=== PATIENT | male | born 1965 | race Caucasian/White ===

== ENCOUNTER 2016-09-10 06:40 | Emergency (ER) | payer OTHER ==
[~2016-09-10] VITALS: Ht 182.9 cm; Wt 81.6 kg
[~2016-09-10 06:40] MED LIST: PRON INH
--- NOTE | 2016-09-10 06:43 | NUR ---
Dr. Mcgill evaluating patient at bedside.
--- NOTE | 2016-09-10 06:43 | NUR ---
PT BIJAL ALS. TAKEN TO BED 3
--- NOTE | 2016-09-10 06:44 | NUR ---
Respiratory Therapist at bedside for respiratory intervention.
[2016-09-10 06:49] VITALS: BP 135/108
[2016-09-10] MEDS ORDERED: IPRATROPIUM 0.02% 0.5 MG/2.5 ML NEBU INH ONE ×4 (06:50→09:55)
[2016-09-10] MEDS ORDERED: ALBUTEROL 0.083% 2.5 MG/3 ML NEBU INH ONE ×4 (06:50→09:55)
[2016-09-10] MEDS ORDERED: methylPREDNISolone SS 125 MG/2 ML VIAL IVP ONE (06:50)
[2016-09-10] MEDS ORDERED: MAG SULF 2000 MG/WATER PREMIX 50 ML IV ONE (06:50)
--- NOTE | 2016-09-10 06:50 | NUR ---
50 Y/O M BIBA C/O SOB SINCE YESTERDAY, HE WAS GIVEN BREATHING TREATMENT ENROUTE. WHEEZES ASCULTATED BILATERAL, RETRACTIONS, LABORED BREATHING. ER MD AND RT AT BEDSIDE DOING BREATHING TX. PT O MONITOR.
--- NOTE | 2016-09-10 07:01 | NUR ---
Pt report given to ESTELITA JEAN. Transfer of care at this time.
--- NOTE | 2016-09-10 07:02 | NUR ---
RECEIVED REPORT FROM ESTELITA GRAVES. PT'S RECEIVING BREATHING TREAMENT.WILL CONTINUE TO MONITOR.
--- NOTE | 2016-09-10 07:04 | NUR ---
X-Ray at bedside.
[2016-09-10 07:10] VITALS: BP 144/87
--- NOTE | 2016-09-10 07:10 | NUR ---
pt placed on vision bipap for respiratory distress settings 12\6 rr20 fio2 60% pt still on breathing tx on bipap b\s are wheezing bilaterally, order given by Dr. Kidd
--- NOTE | 2016-09-10 07:13 | NUR ---
Note eldon in EDM - 09/10/16 at 0720 by MED1 PT ON BIPAP 03/25,RATE 20,60%.Patient appears to be resting comfortably in bed. WILL CONTINUE TO MONITOR.
--- NOTE | 2016-09-10 07:13 | NUR ---
Valentina colón in EDM - 09/10/16 at 0742 by MED1 PT ON BIPAP 03/25,RATE 20,FiO2 60 %.Patient appears to be resting comfortably in bed. WILL CONTINUE TO MONITOR.
--- NOTE | 2016-09-10 07:13 | NUR ---
PT ON BIPAP 03/25,RR 20,FiO2 60 %.Patient appears to be resting comfortably in bed. WILL CONTINUE TO MONITOR.
--- NOTE | 2016-09-10 07:19 | NUR ---
PT ON BIPAP 03/25,RR 20,FiO2 40 %.Patient appears to be resting comfortably in bed. WILL CONTINUE TO MONITOR.
--- NOTE | 2016-09-10 07:19 | NUR ---
Valentina colón in EDM - 09/10/16 at 0743 by MED1 PT ON BIPAP 03/25,RATE 20,FiO2 40 %.Patient appears to be resting comfortably in bed. WILL CONTINUE TO MONITOR.
--- NOTE | 2016-09-10 07:41 | NUR ---
pt receiving breathing tx and computer froze pt had twenty minute tx
--- NOTE | 2016-09-10 07:44 | NUR ---
Secondary breathing treatment administered by respiratory therapist at bedside.
[2016-09-10 07:45] LABS: BASOPHILS # (AUTO) 0.4 K/uL (0.00-0.22); BASOPHILS % (AUTO) 3.6 % (0.0-2.0); EOSINOPHILS # (AUTO) 1.2 K/uL (0-0.4); EOSINOPHILS % (AUTO) 10.8 % (0.0-4.0); HEMATOCRIT 46.3 % (36-52); HEMOGLOBIN 15.2 g/dL (12.0-18.0); LYMPHOCYTES # (AUTO) 3.4 K/uL (2.0-11.5); LYMPHOCYTES % (AUTO) 30.8 % (20.5-51.1); MEAN CORPUSCULAR HEMOGLOBIN 30 pg (27-31); MEAN CORPUSCULAR HGB CONC 33 g/dL (33-37); MEAN CORPUSCULAR VOLUME 93 fL (80-94); MONOCYTES # (AUTO) 0.6 K/uL (0.8-1.0); MONOCYTES % (AUTO) 5.9 % (1.7-9.3); NEUTROPHILS # (AUTO) 5.4 K/uL (1.8-7.7); NEUTROPHILS % (AUTO) 48.9 % (42.2-75.2); PLATELET COUNT (AUTO) 266 K/uL (140-450); RED CELL DISTRIBUTION WIDTH 13.8 % (11.6-13.7)
[2016-09-10 08:00] LABS: ANION GAP 10.8 (8-16); CARBON DIOXIDE 30.1 mmol/L (21-32); POTASSIUM 3.9 mmol/L (3.5-5.1)
[2016-09-10 08:01] LABS: CREATININE 0.8 mg/dL (0.6-1.3)
--- NOTE | 2016-09-10 08:11 | NUR ---
ER MD DR RIDLEY REEVALUATING PT AT BEDSIDE. PT'S LUNGS;WEEZING .MD AWARE.3RD BREATHING TREATMENT ORDERED.
--- NOTE | 2016-09-10 08:11 | NUR ---
Valentina colón in EDM - 09/10/16 at 0817 by MED1 OBED RIDLEY REEVALUATING PT AT BEDSIDE. PT'S LUNGS;PATSY .MD OSORIO
--- NOTE | 2016-09-10 08:11 | NUR ---
Note kamillaone in EDM - 09/10/16 at 0834 by MED1 ER MD DR RIDLEY REEVALUATING PT AT BEDSIDE. PT'S LUNGS;WEEZING . 3RD BREATHING TREATMENT ORDERED. AWARE.
--- NOTE | 2016-09-10 08:11 | NUR ---
ER MD DR RIDLEY REEVALUATING PT AT BEDSIDE. PT'S LUNGS;WEEZING . 3RD BREATHING TREATMENT ORDERED. AWARE.
--- NOTE | 2016-09-10 08:34 | NUR ---
Tertiary breathing treatment administered by respiratory therapist at bedside.
--- NOTE | 2016-09-10 08:36 | NUR ---
pt off bipap as per dr. arriaza
--- NOTE | 2016-09-10 08:37 | NUR ---
Valentina colón in [facility] - 09/10/16 at 0838 by MED1 breathing treatment administered by respiratory therapist at bedside.
--- NOTE | 2016-09-10 09:00 | NUR ---
finished 3rd breathing treatment. PULSE OX 91 % ;ON O2 NASAL CANULAR 2 LPM .
--- NOTE | 2016-09-10 09:00 | NUR ---
called to er 3 bedside pt desat to 91% and placed pt on 2lnc and notified
--- NOTE | 2016-09-10 09:40 | NUR ---
AFTER PT HAD BREAKFAST,Patient appears to be resting comfortably in bed.ON O2 NC 2 LPM; LUNGS ;STILL HAS WEEZING . RR 24 ,PULSE OX 93%.WILL CONTINUE TO MONITOR.
--- NOTE | 2016-09-10 10:05 | NUR ---
4TH breathing treatment administered by respiratory therapist at bedside.
[2016-09-10 11:13] VITALS: BP 123/86
--- NOTE | 2016-09-10 11:14 | NUR ---
Patient discharged with v/s stable. Written and verbal after care instructions given and explained. Patient alert, oriented and verbalized understanding of instructions. Ambulatory with steady gait. All questions addressed prior to discharge. ID band removed. Patient advised to follow up with PMD. Rx of PREDNISONE AND ALBUTEROL INHALER given. Patient educated on indication of medication including possible reaction and side effects. Opportunity to ask questions provided and answered.
== END 2016-09-10 11:10 | disposition home or self-care (01) ==
LOC: MED 06:40
DX: J45.901 Unspecified asthma with (acute) exacerbation (principal); Z87.891 Personal history of nicotine dependence
CPT/HCPCS: 36415; 71010; 80048; 84484; 85025; 93005; 94640; 96365; 96366; 96375; 99285; J2930; J3475; J7613; J7644; Q0092

== ENCOUNTER 2019-12-07 21:21 | Emergency (ER) | payer SELFPAY ==
[~2019-12-07] VITALS: Ht 175.3 cm; Wt 65.8 kg
--- NOTE | 2019-12-07 21:25 | NUR ---
biba to bed 4
[2019-12-07 21:32] VITALS: BP 136/83
--- NOTE | 2019-12-07 21:33 | NUR ---
DR. AREVALO AT BEDSIDE EVALUATING PT.
[2019-12-07 21:34] VITALS: BP 136/83
--- NOTE | 2019-12-07 21:39 | NUR ---
54 Y/O M BIBA C/O BACK PAIN X 1 DAY. PT DESCRIBES PAIN TO BE 9/10 FROM THE NECK TO THE WHOLE BACK. PT STATES THAT HE WAS WORKING IN HIS YARD YESTERDAY AND FELT THAT SOMETHING HIT HIM IN THE BACK. PER PT, PAIN WORST NOW SINCE YESTERDAY. NO DEFORMITIES NOTED. AIRWAY INTACT, RR EVEN AND UNLABORED. BED LOCKED AND IN LOWEST POSITION, SIDE RAIL UP X1. WILL CONTINUE TO MONITOR. MHX: ASTHMA NKA
[2019-12-07] MEDS: KETOROLAC 30 MG/ML VIAL IM ONE (21:45)
--- NOTE | 2019-12-07 21:52 | NUR ---
PT TAKEN TO XRAY VIA DAVID.
[2019-12-07] MEDS: CYCLOBENZAPRINE 10 MG TAB PO ONE (23:53)
--- NOTE | 2019-12-08 00:32 | NUR ---
Patient discharged with v/s stable. Written and verbal after care instructions given and explained. Patient alert, oriented and verbalized understanding of instructions. Ambulatory with steady gait. All questions addressed prior to discharge. ID band removed. Patient advised to follow up with PMD. Rx of flexeril and ibuprofen given. Patient educated on indication of medication including possible reaction and side effects. Opportunity to ask questions provided and answered.
== END 2019-12-08 00:32 | disposition home or self-care (01) ==
LOC: MED 21:21
DX: M54.2 Cervicalgia (principal); M54.6 Pain in thoracic spine; M54.5 Low back pain; J45.909 Unspecified asthma, uncomplicated; Z79.899 Other long term (current) drug therapy
CPT/HCPCS: 72040; 72072; 72100; 96372; 99284; J1885

== ENCOUNTER 2020-10-04 13:49 | Emergency (ER) | payer OTHER ==
[~2020-10-04] VITALS: Ht 182.9 cm; Wt 77.1 kg
--- NOTE | 2020-10-04 13:49 | NUR ---
Patient RAINE SANTANA for pre-booking medical screening exam, transferred to chair Justina CAPONE evaluaing the patient.
[2020-10-04 13:50] VITALS: BP 142/104
[2020-10-04 14:32] VITALS: BP 142/104
--- NOTE | 2020-10-04 14:32 | NUR ---
Patient discharged with v/s stable. Written and verbal after care instructions given and explained. Patient verbalized understanding. Police with in custody. All questions addressed prior to discharge. Advised to follow up with PMD.
--- NOTE | 2020-10-04 14:41 | NUR ---
RAINE Owen FOR PREBOOK FOR MEDICAL CLRERANCE. PATIENT STATED HE HAD HX OF STROKE /TROBLE SPEAKING IN DEC 2019. DENIES PAIN. VSS.
== END 2020-10-04 14:32 ==
LOC: MED 13:49
DX: J45.909 Unspecified asthma, uncomplicated (principal); Z02.89 Encounter for other administrative examinations; Z00.00 Encounter for general adult medical examination without abnormal findings; Z79.899 Other long term (current) drug therapy
CPT/HCPCS: 99283

== ENCOUNTER 2020-11-12 22:26 | Emergency (ER) | payer OTHER ==
[~2020-11-12] VITALS: Ht 185.4 cm; Wt 81.6 kg
[2020-11-12 22:26] VITALS: BP 144/96
--- NOTE | 2020-11-12 22:26 | NUR ---
BIBA WITH C/O DIFFICULTY BREATHING, ASTHMA. R.T. IN PROGRESS. INSPIRATORY AND EXPIRATORY WHEEZES NOTED A&P. SKIN IS WARM AND DRY. O2 SAT ON TX = 100% PMH : STROKE WITH DYSPHAGIA, ASTHMA UNKNOWN ALLERGIES
[2020-11-12] MEDS ORDERED: ALBUTEROL SULFATE/IPRATROPIU 3 ML SOL IH ONE (22:50)
[2020-11-12] MEDS ORDERED: methylPREDNISolone SS 125 MG in WATER STERILE 2 ML IV ONE (22:50)
[2020-11-12 23:28] LABS: ANION GAP 9.3 (8-16); CARBON DIOXIDE 33.5 mmol/L (21-32); POTASSIUM 3.8 mmol/L (3.5-5.1)
[2020-11-12] MEDS ORDERED: methylPREDNISolone SS 125 MG/2 ML VIAL ONE (23:52)
--- NOTE | 2020-11-13 | NUR ---
RESTING COMFORTABLY. LUNGS REMAIN WITH INSPIRATORY AND EXPIRATORY WHEEZES.
[2020-11-13 00:53] LABS: BASOPHILS % (AUTO) 0.6 % (0.0-2.0); EOSINOPHILS # (AUTO) 0.6 K/uL (0-0.4); EOSINOPHILS % (AUTO) 11.3 % (0.0-4.0); HEMATOCRIT 43.5 % (36-52); HEMOGLOBIN 14.5 g/dL (12.0-18.0); LYMPHOCYTES # (AUTO) 2.4 K/uL (2.0-11.5); LYMPHOCYTES % (AUTO) 41.7 % (20.5-51.1); MEAN CORPUSCULAR HEMOGLOBIN 34 pg (27-31); MEAN CORPUSCULAR HGB CONC 33 g/dL (33-37); MEAN CORPUSCULAR VOLUME 100.5 fL (80-94); MONOCYTES # (AUTO) 0.5 K/uL (0.8-1.0); MONOCYTES % (AUTO) 8.7 % (1.7-9.3); NEUTROPHILS # (AUTO) 2.2 K/uL (1.8-7.7); NEUTROPHILS % (AUTO) 37.7 % (42.2-75.2); PLATELET COUNT (AUTO) 218 K/uL (140-450); RED BLOOD CELL COUNT(AUTO) 4.33 MIL/uL (4.20-6.10); RED CELL DISTRIBUTION WIDTH 13.2 % (11.6-13.7); WHITE BLOOD COUNT (AUTO) 5.7 K/uL (4.8-10.8)
--- NOTE | 2020-11-13 01:56 | NUR ---
PT TO BE DISCHARGED. CALL TO FAMILY, NO ANSWER
--- NOTE | 2020-11-13 02:11 | NUR ---
CONTINUES TO REST WITH EYES CLOSED. RESPIRATIONS ARE REGULAR AND UNLABORED. LUNG SOUNDS ARE NOW CLEAR, O2 SAT = 97%
[2020-11-13] MEDS ORDERED: PRED20TA5 PO (02:23)
[2020-11-13] MEDS ORDERED: ALBU0.0912 INH (02:24)
--- NOTE | 2020-11-13 02:53 | NUR ---
ADDITIONAL CALL PLACED TO FAMILY REGARDING DISCHARGE., NO ANSWER
--- NOTE | 2020-11-13 05:45 | NUR ---
CALL PLACED TO FAMILY, NO ANSWER
--- NOTE | 2020-11-13 06:35 | NUR ---
PTS SISTER CALLED. NOTIFIED OF DISCHARGE, SISTER WILL BE HERE IN 15 MINUTES TO PARCEL POST WEIGHER PT
[2020-11-13 07:13] VITALS: BP 124/67
--- NOTE | 2020-11-13 07:13 | NUR ---
Patient discharged with v/s stable. Written and verbal after care instructions given and explained. Patient alert, oriented and verbalized understanding of instructions. Ambulatory with steady gait. All questions addressed prior to discharge. ID band removed. Patient advised to follow up with PMD. Rx of PROVENTIL & PREDNISONE given. Patient educated on indication of medication including possible reaction and side effects. Opportunity to ask questions provided and answered.
== END 2020-11-13 07:13 | disposition home or self-care (01) ==
LOC: MED 22:26
DX: J45.901 Unspecified asthma with (acute) exacerbation (principal); I63.9 Cerebral infarction, unspecified; Z79.899 Other long term (current) drug therapy
CPT/HCPCS: 36415; 71045; 80048; 83880; 84484; 85025; 93005; 94640; 96374; 99285; J2930

== ENCOUNTER 2022-08-07 21:32 | Emergency (ER) | payer OTHER ==
[~2022-08-07] VITALS: Ht 177.8 cm; Wt 63.5 kg
[~2022-08-07 21:32] MED LIST changes: +ALBU0.0912 INH; +PRED20TA5 PO
[2022-08-07 21:38] VITALS: BP 154/96
--- NOTE | 2022-08-07 21:38 | NUR ---
PT BIJAL BLS. TAKEN TO BED 7
--- NOTE | 2022-08-07 21:49 | NUR ---
[place] [employer] AT BEDSIDE
--- NOTE | 2022-08-07 21:59 | NUR ---
Note kamillaveronika in EDM - 08/07/22 at 2159 by MNURPM 23YR OLD FEMALE BIB SELF C/O RLQ ABD PAIN X TODAY. SHARP 10/27 PAIN. NON RADATING. PT DENIES CP OR SOB . STATES PAIN STARTED TODAY. DENIES V/D. PT IS A&OX4 . NKDA NO MED HX
--- NOTE | 2022-08-07 22:06 | NUR ---
56YR OLD MALE BIB EMS C/O BEHAVORIAL PT WAS HITTING HEAD ON WALL AT FAMILY HOUSE. LACERATION TO FOREHEAD. BLEEDING CONTROLLED. PT IS A&OX4. DENIES PAIN CP OR SOB. PT HX OF SUBSTANCE ABUSE AND ETOH. PT ATTEMPTS TO DRINKING TODAY. 5150 HOLD PER [place] [employer]. PT IS REFUSING TO GET INTO GOWN AND BAG BELONGINGS. ALL ITEMS FROM ROOM REMOVED FOR PT SAFTEY. NKDA UNKNOWN
--- NOTE | 2022-08-07 22:25 | NUR ---
Dr. Fowler examining patient.
--- NOTE | 2022-08-07 22:26 | NUR ---
PT BECAME AGITATED DURING ASSESSMENT BEGAN YELLING "WHAT WHAT" WHILE GETTING OUT OF BED AND ATTMEPT TO APPROACH MD. PT REDIRECTED, SITTING QUITELY IN BED.
[2022-08-07] MEDS ORDERED: LORazepam 2 MG/ML VIAL IM ONE (22:30)
[2022-08-07] MEDS ORDERED: diphenhydrAMINE 50 MG/ML VIAL IM ONE (22:30)
[2022-08-07] MEDS ORDERED: HALOPERIDOL IM 5 MG/ML VIAL IM ONE (22:30)
[2022-08-07 22:42] LABS: BASOPHILS % (AUTO) 0.6 % (0.0-2.0); EOSINOPHILS % (AUTO) 0.4 % (0.0-4.0); HEMATOCRIT 42.9 % (36-52); HEMOGLOBIN 14.5 g/dL (12.0-18.0); LYMPHOCYTES % (AUTO) 16.2 % (20.5-51.1); MEAN CORPUSCULAR HEMOGLOBIN 33 pg (27-31); MEAN CORPUSCULAR HGB CONC 34 g/dL (33-37); MEAN CORPUSCULAR VOLUME 96.9 fL (80-94); MONOCYTES # (AUTO) 0.4 K/uL (0.8-1.0); MONOCYTES % (AUTO) 7.2 % (1.7-9.3); NEUTROPHILS # (AUTO) 4.6 K/uL (1.8-7.7); NEUTROPHILS % (AUTO) 75.6 % (42.2-75.2); PLATELET COUNT (AUTO) 210 K/uL (140-450); RED BLOOD CELL COUNT(AUTO) 4.43 MIL/uL (4.20-6.10); RED CELL DISTRIBUTION WIDTH 13.8 % (11.6-13.7)
[2022-08-07 23:05] LABS: ANION GAP 11.6 (8-16); ASPARTATE AMINOTRANSFERASE 24 U/L (15-37); CARBON DIOXIDE 28.7 mmol/L (21-32); CHLORIDE 106 mmol/L (98-107); CREATININE 1.2 mg/dL (0.6-1.3); GFR ARICAN-AMERICAN 81 mL/min (>90); GLUCOSE 110 mg/dL (74-106); POTASSIUM 4.3 mmol/L (3.5-5.1); SALICYLATE 2.8 mg/dL (2.8-20.0); SODIUM SERUM 142 mmol/L (136-145); TOTAL BILIRUBIN 0.4 mg/dL (0.0-1.0); UREA NITROGEN, BLOOD 21 mg/dL (7-18)
[2022-08-07 23:06] LABS: ACETAMINOPHEN < 0.5 ug/ml (10-30)
--- NOTE | 2022-08-07 23:56 | NUR ---
PT SLEEPING HOB ELEVATED. RESP EVEN AND UNLABORED. BED AT LOWEST POSITION SIDE RAILS UP X2
[2022-08-08] MEDS ORDERED: HALOPERIDOL IM 5 MG/ML VIAL IM ONE (00:40)
--- NOTE | 2022-08-08 02:28 | NUR ---
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
--- NOTE | 2022-08-08 05:21 | NUR ---
PT SLEEPING HOB ELEVATED. 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 RESP EVEN AND UNLABORED
--- NOTE | 2022-08-08 08:00 | NUR ---
ASLEEP AT THIS TIME, NO DISTRESS. AROUSABLE AND COOPERATIVE WITH CARE. VOIDED PER URINAL TO PROVIDE URINE SAMPLE.
[2022-08-08 09:12] LABS: BARBITURATE, URINE NEGATIVE ng/ml (NEG <=200); BENZODIAZEPINE, URINE POSITIVE ng/mL (NEG <=200); CANNABINOID, URINE POSITIVE ng/mL (NEG <=50); COCAINE, URINE NEGATIVE ng/mL (NEG <=300); OPIATE, URINE NEGATIVE ng/mL (NEG <=2000); PHENCYCLIDINE SCREEN,URINE NEGATIVE ng/mL (NEG <=25)
--- NOTE | 2022-08-08 12:41 | NUR ---
[facility]
--- NOTE | 2022-08-08 13:00 | NUR ---
LAYING IN BED MOST OF TIME, USES URINAL AT BEDSIDE. GOES TO BR WITH STAFF PERMISSION TO MOVE BOWELS. PT DOES NOT DEMONSTRATE ANY ACTS OF HURTING SELF OR OTHERS, STILL HAS SOME SUICIDAL THOUGHTS "I FEEL BETTER TODAY" ATE MEALS AFTER SET UP, TOLERATES AND CONSUMES 75%
--- NOTE | 2022-08-08 20:26 | NUR ---
PT IS SLEEPING WITH HOB ELEVATED. RESP EVEN AND UNLABORED. PENDING ACCEPTANCE FOR TRANSFER
--- NOTE | 2022-08-09 01:59 | NUR ---
PT SLEEPING WITH HOB ELEVATED. RESP EVEN AND UNLABORED
--- NOTE | 2022-08-09 04:37 | NUR ---
PT SLEEPING WITH HOB ELEVATED. RESP EVEN AND UNLABORED. RESP EVEN AND UNLABORED
--- NOTE | 2022-08-09 07:20 | NUR ---
REPORT RECEIVED FROM AUGUST ESTELITA. ASSUMED CARE AT THIS TIME Addendum: 08/09/22 at 0818 by PHSEP 5150 HOLD - DTS PLACED 08/07/22 @2141 BY MYRTLE DEL ANGEL
--- NOTE | 2022-08-09 07:25 | NUR ---
pt in view and at rest w/ eyes closed. respirations even and unlabored. bed at lowest position, bed rails upx2.
[2022-08-09 07:56] VITALS: BP 130/83
--- NOTE | 2022-08-09 07:57 | NUR ---
pt provided w/ breakfast. pt awake and eating in bed
--- NOTE | 2022-08-09 10:30 | NUR ---
PT ON TELEPSYCH W/ MD JACKSON
--- NOTE | 2022-08-09 10:39 | NUR ---
PER MD JACKSON, PT OFF HOLD AND OK FOR D/C. THEA MADE AWARE. SECURITY CALLED FOR PB
--- NOTE | 2022-08-09 11:17 | NUR ---
Patient discharged with v/s stable. Written and verbal after care instructions FOR SUICIDAL FEELINGS given and explained. Patient verbalized understanding. Ambulatory with steady gait. All questions addressed prior to discharge. Advised to follow up with PMD. MENTAL HEALTH AND ALCOHOL/DRUG USE RESOURCE PACKETS PROVIDED
--- NOTE | 2022-08-09 11:35 | NUR ---
The patient's care was reviewed and supervised by ED Agency Nurse 8, RN, RN.
== END 2022-08-09 11:17 | disposition home or self-care (01) ==
LOC: MED 21:32
DX: S01.81XA Laceration without foreign body of other part of head, initial encounter (principal); R45.1 Restlessness and agitation; R41.82 Altered mental status, unspecified; Z20.822 Contact with and (suspected) exposure to COVID-19; J45.909 Unspecified asthma, uncomplicated; Z86.73 Personal history of transient ischemic attack (TIA), and cerebral infarction without residual deficits; Z79.899 Other long term (current) drug therapy; W22.8XXA Striking against or struck by other objects, initial encounter; Y92.009 Unspecified place in unspecified non-institutional (private) residence as the place of occurrence of the external cause; Y93.89 Activity, other specified; Y99.8 Other external cause status
CPT/HCPCS: 12013; 36415; 80053; 80305; 85025; 87426; 87635; 90471; 90715; 96372; 99291; C9803; G0480; G0482; J1200; J1630; J2060; U0005

== ENCOUNTER 2022-09-05 10:37 | Emergency (ER) | payer OTHER ==
[~2022-09-05] VITALS: Ht 172.7 cm; Wt 84.8 kg
[2022-09-05 10:44] VITALS: BP 119/53
[2022-09-05] MEDS ORDERED: NACL 0.9% 1,000 ML IV ONE (11:25)
[2022-09-05] MEDS ORDERED: methylPREDNISolone SS 125 MG/2 ML VIAL IVP ONE (11:25)
[2022-09-05] MEDS ORDERED: ALBUTEROL 0.083% 2.5 MG/3 ML NEBU INH ONE ×2 (11:25)
[2022-09-05] MEDS ORDERED: IPRATROPIUM 0.02% 0.5 MG/2.5 ML NEBU INH ONE (11:25)
[2022-09-05] MEDS ORDERED: MAG SULF 2000 MG/WATER PREMIX 50 ML IV ONE (11:25)
--- NOTE | 2022-09-05 11:25 | NUR ---
56YO MALE PT C/O INCREASED SOB XTODAY. DENIES RELIEF AFTER USING INHALER. MICHELLE WHEEZING NOTED. RESPIRATIONS EVEN AND UNLABORED. DENIES CHEST PAIN. 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 HOB POSITIONED PER COMFORT HX: ASTHMA, CEREBROVASCULAR ACCIDE NKA
--- NOTE | 2022-09-05 12:07 | NUR ---
1/ ALBUTEROL INH TX STARTED
--- NOTE | 2022-09-05 12:13 | NUR ---
RT AT BEDSIDE
--- NOTE | 2022-09-05 12:15 | NUR ---
CALLED TO BEDSIDE BY RN. PT WAS WHEEZING AND DISPLAYED AN INCREASE WORK OF BREATHING. PT COMPLAINED OF SHORTNESS OF BREATH. HR WAS 46. PT GIVEN 5 MG OF ALBUTEROL AND 0.5 MG ATROVENT. HR INCREASED TO 56 BY END OF TREATMENT. PT SAYS HE FEELS BETTER AND BREATHING IS EASIER.
[2022-09-05 13:03] VITALS: BP 134/84
[2022-09-05] MEDS ORDERED: PRED20TA5 PO (13:07)
--- NOTE | 2022-09-05 13:19 | NUR ---
Patient discharged with v/s stable. Written and verbal after care instructions FOR ASTHMA given and explained. Patient alert, oriented and verbalized understanding of instructions. Ambulatory with steady gait. All questions addressed prior to discharge. ID band removed. Patient advised to follow up with PMD. Rx of DELTASONE given. Opportunity to ask questions provided and answered.
--- NOTE | 2022-09-05 13:25 | NUR ---
The patient's care was reviewed and supervised by Zee Hinojosa RN.
== END 2022-09-05 13:19 | disposition home or self-care (01) ==
LOC: MED 10:37
DX: J45.901 Unspecified asthma with (acute) exacerbation (principal); F17.290 Nicotine dependence, other tobacco product, uncomplicated; Z79.899 Other long term (current) drug therapy; Z86.73 Personal history of transient ischemic attack (TIA), and cerebral infarction without residual deficits
CPT/HCPCS: 94640; 96365; 96375; 99284; J2930; J3475; J7030; J7613; J7644